=== PATIENT | female | born 1985 | race Two or more races ===

== ENCOUNTER 2024-10-23 22:02 | Emergency (ER) | payer MEDICAID, OTHER ==
[~2024-10-23] VITALS: Ht 160 cm; Wt 95.5 kg
--- NOTE | 2024-10-23 23:49 | DVH ---
CLINICAL INDICATION: LEFT 5TH FINGER INJURY TECHNIQUE: 3 views of the left 5th digit XY L HAND 3V XRAY Comparison: None FINDINGS/IMPRESSION: There is no evidence of acute fracture or dislocation. Soft tissues are unremarkable.
--- NOTE | 2024-10-23 23:54 | ED.PDOC ---
Back pain HPI HPI Comments THIS IS A 39-YEAR-OLD FEMALE PRESENTS TO THE ED CHIEF COMPLAINT LEFT 5TH FINGER PAIN. PATIENT REPORTS SHE WAS TRYING TO OPEN THE CAR DOOR AND GOT HER ACRYLIC NAIL IN HER PINKY FINGER AND LEFT HAND CAUGHT IN THE DOOR AND PULLED. NOTES MODERATE DISCOMFORT 5/10 ON PAIN SCALE PRESSURE TYPE PAIN. NO NOTED BLEEDING AT THIS TIME. DENIES NUMBNESS, WEAKNESS. Chief Complaint: Upper Extremity Time Seen by MD: 22:06 Reviewed Notes: Nurses Notes, Medications, Allergies Allergies: Coded Allergies: Aspirin (Verified Allergy, Unknown, 10/23/24) Ibuprofen (Verified Allergy, Unknown, 10/23/24) Penicillins (Verified Allergy, Unknown, 10/23/24) Information Source: Patient Mode of Arrival: Ambulatory Past Medical History PAST MEDICAL HISTORY: Denies Surgical History: Denies all surgeries VOCATIONAL SERVICES SPECIALIST History: No Pertinent VOCATIONAL SERVICES SPECIALIST History Family History Family History: Reviewed,noncontributory to illness Social History Smoker: Non-Smoker Alcohol: Denies ETOH Use Drugs: Denies Drug Use Constitutional: denies: chills, diaphoresis, fatigue, fever, malaise, sweats, weakness, others EENTM: denies: blurred vision, double vision, ear bleeding, ear discharge, ear drainage, ear pain, ear ringing, eye pain, eye redness, hearing loss, mouth pain, mouth swelling, nasal discharge, nose bleeding, nose congestion, nose pain, photophobia, tearing, throat pain, throat swelling, voice changes, others Respiratory: denies: cough, hemoptysis, orthopnea, SOB at rest, shortness of breath, SOB with excertion, stridor, wheezing, others Cardiovascular: denies: chest pain, dizzy spells, diaphoresis, Dyspnea on exertion, edema, irregular heart beat, left arm pain, lightheadedness, palpitations, PND, syncope, others Gastrointestinal: denies: abdomen distended, abdominal pain, blood streaked bowels, constipated, diarrhea, dysphagia, difficulty swallowing, hematemesis, melena, nausea, poor appetite, poor fluid intake, rectal bleeding, rectal pain, vomiting, others Genitourinary: denies: abnormal vagina bleeding, burning, dyspareunia, dysuria, flank pain, frequency, hematuria, incontinence, pain, , vagina discharge, urgency, others Neurological: denies: dizziness, fainting, headache, left sided numbness, left sided weakness, numbness, paresthesia, pre-existing deficit, right sided numbness, right sided weakness, seizure, speech problems, tingling, tremors, weakness, others Musculoskeletal: reports: others (LEFT 5TH FINGER PAIN); denies: back pain, gout, joint pain, joint swelling, muscle pain, muscle stiffness, neck pain Integumetry: denies: bruises, change in color, change in hair/nails, dryness, laceration, lesions, lumps, rash, wounds, others Allergic/Immunocompromised: denies: Difficulty Healing, Frequent Infections, Hives, Itching, others Hematologic/Lymphatic: denies: anemia, blood clots, easy bleeding, easy bruising, swollen glands, others Endocrine: denies: excessive hunger, excessive sweating, excessive thirst, excessive urination, flushing, intolerance to cold, intolerance to heat, unexplained weight gain, unexplained weight loss, others Psychiatric: denies: anxiety, bipolar disorder, depression, hopeless, panic disorder, schizophrenia, sleepless, suicidal, others Physical Exam General Appearance: No Apparent Distress, Normal HEENT: Pharynx Normal Neck: Full Range of Motion, Non-Tender Respiratory: Lungs Clear, No Respiratory Distress, Normal Breath Sounds Cardiovascular: No Murmur, Normal Peripheral Pulses, Regular Rate/Rhythm Breast Exam: Deferred Gastrointestinal: Non Tender, Soft Genitalia: Deferred Pelvic: Deferred Rectal: Deferred Extremities: Normal capillary refill, Normal inspection, Normal range of motion, Non-tender, No pedal edema Musculoskeletal : Location: Left Extremity Location: Little Finger (MODERATE TENDERNESS DISTAL ASPECT NAIL INTACT NO NOTED BLEEDING TRACE EDEMA NO ERYTHEMA LACERATIONS ABRASIONS OR OPEN WOUNDS CAP REFILL LESS THAN 3 SECONDS STRENGTH SENSORY MOTION INTACT) Apperance: Normal Neurologic: Alert, pipe fitter maintenance II-XII nml as Tested, No Motor Deficits, Normal Affect, Normal Mood, No Sensory Deficits Cerebellar Function: Normal Reflexes: Normal Skin: Dry, Normal Color, Warm Lymphatic: No Adenopathy Was a procedure done? Was a procedure done?: No Back Pain Differential Dx Differential Diagnosis: Fracture, Musculoskeletal Pain X-Ray, Labs, Meds, VS Vital Signs Date Time Temp Pulse Resp B/P (MAP) Pulse Ox O2 Delivery O2 Flow Rate FiO2 10/23/24 22:37 97.6 97 16 150/92 (111) 97 X-Ray, Labs, Meds, VS Comment LEFT HAND X-RAY NEGATIVE FOR ACUTE FRACTURES OR OSSEOUS LESIONS. PATIENT PLACED IN FINGER SPLINT. ADVISED ON RICE. ADVISED TO FOLLOW UP WITH PCP IN 2-3 DAYS NECESSARY CONSIDER REPEAT IMAGING IF PAIN AND SWELLING CONTINUES. DSLU-UPI-AATPEGD TYLENOL OR MOTRIN NEEDED FOR PAIN PER LABELED DOSING INSTRUCTIONS. ER RETURN PRECAUTIONS GIVEN. PATIENT AGREES WITH DISCHARGE PLAN OF CARE. Time of 1ST Reevaluation: 23:59 Reevaluation 1ST: Improved Patient Education/Counseling: Diagnosis, Treatment, Prognosis, Need For Follow Up Family Education/Counseling: No Family Present Departure 1 Departure Time of Disposition: 23:59 Impression: Primary Impression: Nailbed contusion, finger Qualified Codes: S60.10XA - Contusion of unspecified finger with damage to nail, initial encounter Disposition: HOME / SELF CARE / HOMELESS Condition: Stable Discharged With: Self Critical Care Note Critical Care Time?: No Stability Stability form required: AGUEDA Hull Oct 23, 2024 23:54
[2024-10-24 00:13] VITALS: BP 112/59; PULSE 78; RESP 18; TEMP 97.6; O2SAT 100
== END 2024-10-24 00:48 | disposition home or self-care (01) ==
LOC: ER 22:02
DX: S60.052A Contusion of left little finger without damage to nail, initial encounter (principal); Z88.0 Allergy status to penicillin; Z88.6 Allergy status to analgesic agent; W23.2XXA Caught, crushed, jammed or pinched between a moving and stationary object, initial encounter; Y93.89 Activity, other specified; Y92.89 Other specified places as the place of occurrence of the external cause; Y99.8 Other external cause status
CPT/HCPCS: 29130; 73130; 99283; J7030